=== PATIENT | male | born 1995 | race Caucasian/White ===

== ENCOUNTER 2023-10-28 19:01 | Emergency (ER) | payer MEDICARE, SELFPAY ==
[2023-10-28 19:02] VITALS: BP 160/98
--- NOTE | 2023-10-28 20:18 | ED.GENMED ---
History of Present Illness
General
Chief Complaint: Extremity Pain (non-traumatic)
Source: patient
Exam Limitations: none
Time Seen by Provider: 10/28/23 19:25
History of Present Illness
History of Present Illness:
This is a 28 year old male that comes in with c/o tingling in the left hand that goes into the left forearm. States that on Sunday after work he noticed this tingling in the left third and fourth knuckle. States that this then went into his hand and
up the left arm to the elbow. States that it was like he punched something. 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 States that he has had some of this in the right hand but not as bad. Denies any fever, chills, chest pain, SOB, abd pain,
nausea, vomiting, diarrhea, headache, dizziness, urinary burning.
Past History
Past History
ED Past Medical History: Asthma (Sports induced), Psychiatric (Anxiety, Depression and Stress) and Other (Chronic low back pain); Negative HTN, Hypercholesterolemia or NIDDM
ED Past Surgical History: Appendectomy
Social History
Tobacco: Former smoker
Alcohol: Occasional
Drug: None
Personal: Single
Living: with family
Employment: Employed
Review of Systems
Review of Systems
All Other Systems: ROS reviewed and negative except as documented in HPI and ROS
Constitutional: Reports no symptoms; Denies fever or chills
EENT: Reports no symptoms
Respiratory: Reports no symptoms; Denies cough or trouble breathing
Cardiac: Reports no symptoms; Denies chest pain
ABD/GI: Reports no symptoms; Denies abdominal pain, nausea, vomiting or diarrhea
: Reports no symptoms; Denies dysuria, frequency or urgency
Musculoskeletal: Reports other (Tingling left hand up to the left elbow)
Skin: Reports no symptoms
Neurological: Reports no symptoms; Denies dizzy or headache
Psychiatric: Reports no symptoms
Phy Exam
General Physical Exam
General Presentation: well appearing and no apparent distress
General age: appears stated age
General Skin: warm and dry
General Habitus: normal
General Mental: alert
General Hydration: appears well hydrated
ENT Exam
ENT Exam: TM's normal, pharynx normal and neck supple
Eye Exam
Eye Exam: EOMI
Cardiovascular Exam
Cardiovascular Exam: regular rate/rhythm, no edema, no murmur and normal peripheral pulses
Pulmonary Exam
Pulmonary Exam: lungs clear, no respiratory distress, no rales, chest non tender, no crackles, no rhonchi, no wheezing and no cough
Gastrointestinal Exam
Gastrointestinal Exam: normal bowel sounds, non tender, soft, no organomegaly, no pulsatile mass and non distended
Musculoskeletal Exam
Musculoskeletal Exam: full ROM, no edema and other (Negative for swelling of the left arm. Feels pressure with palpation. Peripheral pulse normal. )
Skin Exam
Skin Exam: normal color, warm/dry, no rash and no petechia
Psychiatric Exam
Psychiatric Exam: normal mood/affect
Course
Orders/Labs/Results
Orders:
Orders
10/28/23 20:18
CT Head W/o Iv Contrast Urgent
Comment:
Reason For Exam: Numbness tingling left arm
10/28/23 20:39
Complete Blood Count/With Diff Urgent
Comprehensive Metabolic Panel Urgent
Troponin I Urgent
Abnormal Lab Results
10/28/23
20:39
MCH 31.6 H pg
(27.0-31.0)
Absolute Monos (auto) 0.7 H 10^3/uL
(0.1-0.6)
Glucose 101 H mg/dl
(70-99)
10/28/23 20:39
10/28/23 20:39
Glucose nonfasting. Troponin <0.012
Vital Signs
Initial and Last Documented VS:
Initial Vital Signs
Temp Pulse Resp BP Pulse Ox
99.5 F 68 18 160/98 98
10/28/23 19:02 10/28/23 19:02 10/28/23 19:02 10/28/23 19:02 10/28/23 19:02
Last Documented Vital Signs
Temp Pulse Resp BP Pulse Ox
99.5 F 68 18 140/85 97
10/28/23 19:02 10/28/23 19:02 10/28/23 19:02 10/28/23 20:40 10/28/23 20:42
MDM/Problems Addressed
Differential Diagnosis Includes:
carpal tunnel,
MDM/Problems Addressed:
This is a 28 year old male that comes in with c/o left hand tingling that goes up to his elbow. States that it has also been in the right hand but not as bad. States that he has been taking Ibuprofen but this did not help much.
Will check labs and CT head.
Back into see patient. Explained that her blood work is normal along with the CT of the head. This is most likely carpal tunnel due to the repetitive movements and that it has been on both sides. Will have patient follow up with the Orthopedic
specialist. Patient to return with any concerns. .
Chronic conditions affecting care:
NA
Acute Exacerbation and/or Progression of Chronic Illness:
NA
*Radiology
Radiology exam reviewed: radiology read reviewed (CT head-No evidence of acute intracranial abnormality. )
*Pulse Oximetry
Patient hypoxic: no
*EKG
Interpreted by ED Provider?: NA
Rate: EKG- N/A
*Help Desk Operator Interpretation
Rate: Help Desk Operator- N/A
*Critical Care Note
Total Time (30-74mins, 75-104mins- exclusive of procedures): Not Applicable
ED Attending Note
-
Portions of this chart may have been created with voice recognition software.� Occasional wrong word or��sound alike� substitutions may have occurred due to the inherent limitations of voice recognition software.
Discharge Plan
Departure
Patient Disposition: Home (Routine Discharge)
Date of Disposition: 10/28/23
Time of Disposition: 21:37
Patient with high blood pressure during this ER visit?: Yes
Condition: Good
Covid-19: Not Applicable
Discharge Problem:
Arm paresthesia, left, Possible Carpal tunnel
Instructions: Paresthesia (DC), Carpal Tunnel Exercises, Carpal tunnel surgery - Discharge instructions, BLOOD PRESSURE
Prescriptions:
No Action
prednisone 20 MG tablet
20 mg PO BID Qty: 10 0RF
promethazine-codeine 5 ML syrup
5 - 10 ml PO Q4HPRN PRN (Reason: cough and congestion) Qty: 200 0RF
ondansetron [Zofran ODT] 8 MG tablet,disintegrating
8 mg PO TIDPRN PRN (Reason: vomiting) Qty: 15 0RF
oseltamivir [Tamiflu] 75 MG capsule
75 mg PO BID Qty: 10 0RF
albuterol sulfate 8.5 GM HFA aerosol inhaler
8.5 gm IH Q4 Qty: 1 0RF
naproxen 500 MG tablet
500 mg PO BID Qty: 20 0RF
Rx Instructions:
Take with food.
cyclobenzaprine 10 MG tablet
10 mg PO TID Qty: 15 0RF
prednisone 20 MG tablet
40 mg PO DAILY Qty: 6 0RF
ibuprofen 600 MG tablet
600 mg PO TIDPRN PRN (Reason: pain) Qty: 30 0RF
cyclobenzaprine 10 MG tablet
10 mg PO TIDPRN PRN (Reason: low back pain/spasm) Qty: 15 0RF
Referrals:
Vinnie Frank MD [Active] - Call in 1-3 days for appt
Rachid Pitt MD [Family Provider] -
Activity Restrictions/Additional Instructions:
As discussed, your blood work is normal along with the CT of the head. This is most likely Carpal tunnel due to the repetitive movement of your job. Please follow up with the facility specialist. Tylenol 1000mg every 6 hours for pain and
alternate with Ibuprofen 600mg every 6 hours with food. IF YOU HAVE ANY OTHER CONCERNS PLEASE RETURN TO THE EMERGENCY ROOM.
Interventions
Interventions:
*Risk Screen - Suicide Last Done: 10/28/23 19:02
*General Assessment Last Done: 10/28/23 20:43
*Neglect/Abuse Screening Last Done: 10/28/23 19:02
ED- Fall Risk Assessment Last Done: 10/28/23 20:44
*ED COVID-19 Vaccine History Last Done: 10/28/23 20:43
ED-Skin Assessment Last Done: 10/28/23 20:45
ED-Musculoskeletal Assessment Last Done: 10/28/23 20:45
Discharge Date and Time
Print Language: MARTINIQUAIS
[2023-10-28 20:40] VITALS: BP 140/85
[2023-10-28 20:42] VITALS: BMI 28.4
[2023-10-28 20:47] LABS: % Basophils 0.6 % (0-2); % Immature Granulocytes 0.1 % (0-0.5); % Monocytes 7.6 % (1.7-9.3); % Neutrophils 68.7 % (42.2-75.2); Absolute Basophils 0.1 10^3/uL (0-0.2); Absolute Eosinophils 0.2 10^3/uL (0-0.7); Absolute Lymphocytes 1.9 10^3/uL (1.2-3.4); Absolute Monocytes 0.7 10^3/uL (0.1-0.6); Absolute Neutrophils 6.2 10^3/uL (1.4-6.5); Hematocrit 47.5 % (39.0-52.0); Hemoglobin 16.3 g/dL (13.0-18.0); Mean Corp Hgb Conc. 34.3 g/dL (33.0-37.0); Mean Corpuscular Hgb 31.6 pg (27.0-31.0); Mean Corpuscular Volume 92.1 fL (80.0-94.0); Mean Platelet Volume 9.2 fL (7.4-10.4); Nucleated Red Blood Cells % 0 % (-); Platelet Count 246 10^3/uL (130-400); Red Blood Cell Count 5.16 10^6/uL (4.70-6.10); Red Cell Dist. Width 12.7 % (11.5-14.5)
[2023-10-28 21:05] LABS: ALT (SGPT) 29 U/L (0-50); AST (SGOT) 23 U/L (17-59); Albumin 4.5 g/dl (3.5-5.0); Alkaline Phosphatase 67 U/L (38-126); Blood Urea Nitrogen 15 mg/dl (9-20); Carbon Dioxide 28 mmol/L (22-30); Chloride 107 mmol/L (98-107); Estimated Creatinine Clearance 105 ml/min; Glucose 101 mg/dl (70-99); Potassium 4.1 mmol/L (3.5-5.1); Sodium 139 mmol/L (135-145); Total Bilirubin 0.3 mg/dl (0.2-1.3); Total Protein 6.9 g/dl (6.3-8.2); eGFR > 60.00
[2023-10-28 21:13] LABS: Troponin I < 0.012 ng/ml
[2023-10-28 22:04] VITALS: BP 139/86
== END 2023-10-28 22:06 | disposition home or self-care (01) ==
LOC: EMR 19:01
PROVIDERS: Clinical Nurse Specialist Family Health; EMERGENCY PHYSICIAN Emergency Medicine; FAMILY PHYSICIAN Internal Medicine
DX: R20.2 Paresthesia of skin (principal); R03.0 Elevated blood-pressure reading, without diagnosis of hypertension; Z87.891 Personal history of nicotine dependence
CPT/HCPCS: 99284; 70450; 80053; 84484; 85025

== ENCOUNTER 2025-03-13 22:39 | Emergency (ER) | payer SELFPAY ==
[2025-03-13 22:40] VITALS: BP 199/119
[2025-03-13 22:43] VITALS: BP 197/109
[2025-03-13 22:59] LABS: Hematocrit 49.1 % (39.0-52.0); Hemoglobin 16.7 g/dL (13.0-18.0); Mean Corp Hgb Conc. 34.0 g/dL (33.0-37.0); Mean Corpuscular Volume 89.4 fL (80.0-94.0); Nucleated Red Blood Cells % 0 % (-); Platelet Count 332 10^3/uL (130-400); Red Cell Dist. Width 13.4 % (11.5-14.5)
[2025-03-13 23:22] LABS: ALT (SGPT) 38 U/L (0-50); AST (SGOT) 22 U/L (17-59); Albumin 5.0 g/dl (3.5-5.0); Alkaline Phosphatase 98 U/L (38-126); Blood Urea Nitrogen 10 mg/dl (9-20); Calcium 10.0 mg/dl (8.4-10.2); Carbon Dioxide 24 mmol/L (22-30); Chloride 104 mmol/L (98-107); Glucose 107 mg/dl (70-99); Potassium 4.0 mmol/L (3.5-5.1); Sodium 139 mmol/L (135-145); Total Protein 8.3 g/dl (6.3-8.2); eGFR > 60.00
--- NOTE | 2025-03-13 23:30 | ED.GENMED ---
History of Present Illness
General
Chief Complaint: Throat Problem
Time Seen by Provider: 03/13/25 23:30
History of Present Illness
History of Present Illness:
FOCUSED PAST MEDICAL HISTORY
- Asthma, anxiety
REVIEW OF OLD RECORDS
- Was seen in the Emergency Department October 2023 with paresthesias and at that time CAT scan of the brain was unremarkable
Note:
CHIEF COMPLAINT(S)
Severe headache with neck tightness.
HISTORY OF PRESENT ILLNESS
The patient is a 30-year-old male who presented with the sudden onset of a pounding headache around 9:30 PM. The headache initially started in the back of the head and quickly spread to encompass the entire head. Alongside the headache, the patient
reported experiencing tightness in the neck extending downwards, and numbness in both hands. He mentioned that this headache was unlike any previous headaches he had, including those he experienced during his teenage years, which were diagnosed as
migraines. The severity of the headache increased over time and was associated with elevated blood pressure, noted to be initially in the 190s systolic upon presentation to the emergency department. Although the patient denies weakness on one side
of his body, he experienced sensory symptoms such as numbness in his hands. The headache was also accompanied by nausea, but the patient denied vomiting. The patient does not take any regular blood pressure medications and reported that his blood
pressure was significantly elevated upon arrival.
MEDICATIONS
The patient currently does not take any blood pressure medications.
REVIEW OF SYSTEMS
- Neurological: Sudden and severe headache with neck tightness and numbness in hands. No focal weakness observed.
- Cardiovascular: Elevated blood pressure noted.
- Gastrointestinal: Reports nausea without vomiting.
PHYSICAL EXAM
General: Alert, no acute distress.
Skin: Warm, dry.
Head: Normocephalic, atraumatic.
Neck: Supple, with excellent range of motion and no meningeal signs. No significant tenderness to palpation to the upper back or posterior neck, no anterior abnormality noted
Eye Ears, nose, mouth and throat: Oral mucosa moist.
Cardiovascular: Normal peripheral perfusion, No edema.
Respiratory: Respirations are non-labored.
Gastrointestinal : Abdomen nondistended.
Back: Normal range of motion, Normal alignment.
Musculoskeletal: Normal range of motion, normal strength.
Neurological: Alert and oriented to person, place, time, and situation, excellent [id number] testing, No focal neurological deficit observed. Normal sensation in all extremities. Excellent strength in all extremities
Psychiatric: Cooperative, appropriate mood & affect.
PLAN
1. Obtain a CT scan of the head to rule out intracranial bleeding.
2. Establish IV access and administer intravenous medication as needed.
3. Monitor blood pressure closely due to initial high readings and manage accordingly.
DIFFERENTIAL DIAGNOSIS
The Differential Diagnosis includes, in no particular order and is not limited to:
1. Intracranial hemorrhage
2. Migraine headache
3. Hypertensive crisis
4. Tension-type headache
5. Cervical spine disorder
6. Subarachnoid hemorrhage
7. Cluster headache
8. Meningitis
9. Sinusitis
10. Neurovascular event, such as a transient ischemic attack or stroke
RADIOLOGY
- CT head shows no acute abnormality
EKG
- Sinus 57, normal axis, PVCs
LABS
- White count 11.2, chemistries unremarkable
SUMMARY OF ENCOUNTER
The patient is a 30-year-old male who presented to the emergency department with a sudden and severe headache, neck tightness, and numbness in both hands. The headache started in the back of the head before spreading and was unlike previous
migraines experienced by the patient. Upon presentation, the patient had a markedly elevated blood pressure in the 190s systolic. Given the symptoms and high blood pressure, a CT scan of the head was ordered to rule out intracranial bleeding. The
patients physical exam did not reveal any meningeal signs, and his mental status was appropriate at the time of discharge.
DISPOSITION
Discharge with a plan for follow-up with the primary care physician.
ASSESSMENT
Potential hypertensive crisis and severe headache of unclear etiology, likely requiring blood pressure management and follow-up.
PLAN
Start the patient on losartan for blood pressure control and instruct the patient to follow up with their primary care physician for ongoing management.
MEDICATION RECONCILIATION
Start losartan upon discharge for blood pressure management.
MEDICAL DECISION MAKING
-Complexity of Data Reviewed: Chronic conditions affecting care include history of migraine headaches. Differential diagnosis considered: Intracranial hemorrhage, migraine headache, hypertensive crisis, tension-type headache, cervical spine
disorder, subarachnoid hemorrhage, cluster headache, meningitis, sinusitis, neurovascular event such as a transient ischemic attack or stroke.
-Data:
Category 1:
The patient underwent a CT scan of the head.
Category 2:
My independent interpretation of the CT scan of the head showed no acute intracranial bleeding.
-Risk:
Prescription medication was prescribed: Losartan for blood pressure management.
DIAGNOSIS
Headache
High blood pressure
UPDATE
- GCS of 15 with a stroke scale of 0
- However given the abrupt onset of symptoms CT imaging obtained
- CT imaging unremarkable
- Some ongoing pain despite Reglan, Benadryl, Toradol
- BP spontaneously improving but was close to systolic of 200 upon arrival I does not normally go to doctors
- I sent a prescription for losartan to his pharmacy and I instructed him to follow-up with the PMD
Past History
Past History
ED Past Medical History: Asthma (Sports induced), Psychiatric (Anxiety, Depression and Stress) and Other (Chronic low back pain); Negative HTN, Hypercholesterolemia or NIDDM
ED Past Surgical History: Appendectomy
Social History
Tobacco: Former smoker
Alcohol: Occasional
Drug: None
Personal: Single
Living: with family
Employment: Employed
Phy Exam
Physical Exam
Physical Exam:
See HPI
Course
Orders/Labs/Results
Orders:
Orders
03/13/25 22:43
EKG [Electrocardiogram (*1)] Urgent
Reason for Study: Tachycardia
EKG- Treatment ONCE
03/13/25 22:51
Complete Blood Count/With Diff Urgent
Comprehensive Metabolic Panel Urgent
03/13/25 23:44
Diphenhydramine [Benadryl] 25 mg IV NOW STA
Metoclopramide [Reglan] 10 mg IV NOW STA
03/14/25 00:00
CT Head W/o Iv Contrast Urgent
Reason For Exam: severe abrupt head pain
03/14/25 00:11
0.9% Sodium Chloride 1000 ml [Nss] 1,000 ml IV BOLUS
03/14/25 00:42
Ketorolac [Toradol] 15 mg IV NOW STA
03/14/25 01:32
Losartan [Cozaar] 50 mg PO NOW STA
Abnormal Lab Results
03/13/25
22:51
WBC 11.2 H 10^3/uL
(4.8-10.8)
Abs Immat Gran (auto) 0.1 H 10^3/uL
(0-0.05)
Absolute Neuts (auto) 7.2 H 10^3/uL
(1.4-6.5)
Absolute Monos (auto) 0.7 H 10^3/uL
(0.1-0.6)
Immature Gran % 0.6 H %
(0-0.5)
Glucose 107 H mg/dl
(70-99)
Total Protein 8.3 H g/dl
(6.3-8.2)
03/13/25 22:51
03/13/25 22:51
Vital Signs
Initial and Last Documented VS:
Initial Vital Signs
Temp Pulse Resp BP Pulse Ox
36.6 C 67 16 199/119 100
03/13/25 22:40 03/13/25 22:40 03/13/25 22:40 03/13/25 22:40 03/13/25 22:40
Last Documented Vital Signs
Temp Pulse Resp BP Pulse Ox
36.8 C 62 18 140/97 98
03/14/25 00:08 03/14/25 01:32 03/14/25 01:32 03/14/25 01:32 03/14/25 01:32
*Pulse Oximetry
SaO2: 100
Oxygen Mode of Delivery: Room air
Patient hypoxic: no
*Critical Care Note
Total Time (30-74mins, 75-104mins- exclusive of procedures): Not Applicable
ED Attending Note
-
Portions of this chart may have been created with voice recognition software.� Occasional wrong word or��sound alike� substitutions may have occurred due to the inherent limitations of voice recognition software.
Discharge Plan
Departure
Patient Disposition: Home (Routine Discharge)
Date of Disposition: 03/14/25
Time of Disposition: 01:35
Patient with high blood pressure during this ER visit?: Yes
Discharge Problem:
Headache
Instructions: Headache in adults - ED (DC), BLOOD PRESSURE
Prescriptions:
New
losartan 50 mg tablet
50 mg PO DAILY Qty: 30 0RF
No Action
prednisone 20 MG tablet
20 mg PO BID Qty: 10 0RF
promethazine-codeine 5 ML syrup
5 - 10 ml PO Q4HPRN PRN (Reason: cough and congestion) Qty: 200 0RF
ondansetron [Zofran ODT] 8 MG tablet,disintegrating
8 mg PO TIDPRN PRN (Reason: vomiting) Qty: 15 0RF
oseltamivir [Tamiflu] 75 MG capsule
75 mg PO BID Qty: 10 0RF
albuterol sulfate 8.5 GM HFA aerosol inhaler
8.5 gm IH Q4 Qty: 1 0RF
naproxen 500 MG tablet
500 mg PO BID Qty: 20 0RF
Rx Instructions:
Take with food.
cyclobenzaprine 10 MG tablet
10 mg PO TID Qty: 15 0RF
prednisone 20 MG tablet
40 mg PO DAILY Qty: 6 0RF
ibuprofen 600 MG tablet
600 mg PO TIDPRN PRN (Reason: pain) Qty: 30 0RF
cyclobenzaprine 10 MG tablet
10 mg PO TIDPRN PRN (Reason: low back pain/spasm) Qty: 15 0RF
Referrals:
NONE,* [Family Provider, Internal Medicine]
Activity Restrictions/Additional Instructions:
Basic blood work is unremarkable. CAT scan of the brain shows no bleeding or any other concern. EKG is also unremarkable. Your blood pressure was as high as 199/119. Without intervention the blood pressure did improve down to 140/97. However I
would be concerned for her blood pressure remains this high as an outpatient without seeing a primary care provider. Follow-up with the primary care and I would also recommend that you use your grandfather's blood pressure cuff to check your blood
pressure. Normal blood pressure should be under 120/80. I sent a prescription for losartan to your pharmacy.
Interventions
Interventions:
*Risk Screen - Suicide Last Done: 03/13/25 22:40
*General Assessment Last Done: 03/13/25 22:40
*Neglect/Abuse Screening Last Done: 03/13/25 22:40
*ED COVID-19 Vaccine History Last Done: 03/13/25 22:40
*ED Influenza Vaccine History Last Done: 03/13/25 22:40
[facility] Fall Risk Assessment Tool Last Done: 03/14/25 00:07
Discharge Date and Time
Print Language: ANDORRAN
[2025-03-14 00:07] VITALS: BMI 26.6
[2025-03-14 00:08] VITALS: BP 151/88
[2025-03-14] MEDS: NSS 1000 IV (00:18)
[2025-03-14] MEDS: BENADRYL 25 MG IV (00:20)
[2025-03-14] MEDS: REGLAN 10 MG IV (00:25)
[2025-03-14] MEDS: TORADOL 15 MG IV (00:59)
[2025-03-14 01:32] VITALS: BP 140/97
[2025-03-14] MEDS: COZAAR 50 MG PO (01:52)
== END 2025-03-14 02:03 | disposition home or self-care (01) ==
LOC: EMR 22:39
PROVIDERS: Emergency Medicine; EMERGENCY PHYSICIAN Emergency Medicine
DX: R51.9 Headache, unspecified (principal); R03.0 Elevated blood-pressure reading, without diagnosis of hypertension; J45.990 Exercise induced bronchospasm; F41.9 Anxiety disorder, unspecified; F32.A Depression, unspecified; M54.50 Low back pain, unspecified; G89.29 Other chronic pain; Z87.891 Personal history of nicotine dependence
CPT/HCPCS: 99284; 96374; 96375 ×2; 96361; 70450; 80053; 85025; 93005

== ENCOUNTER 2025-03-16 18:04 | Emergency (ER) | payer SELFPAY ==
[2025-03-16 18:08] VITALS: BP 183/119
[2025-03-16 18:26] LABS: Hematocrit 49.5 % (39.0-52.0); Hemoglobin 16.9 g/dL (13.0-18.0); Mean Corp Hgb Conc. 34.1 g/dL (33.0-37.0); Mean Corpuscular Volume 88.7 fL (80.0-94.0); Nucleated Red Blood Cells % 0 % (-); Platelet Count 309 10^3/uL (130-400); Red Cell Dist. Width 13.3 % (11.5-14.5)
[2025-03-16 18:41] LABS: ALT (SGPT) 30 U/L (0-50); AST (SGOT) 23 U/L (17-59); Albumin 5.1 g/dl (3.5-5.0); Alkaline Phosphatase 89 U/L (38-126); Blood Urea Nitrogen 12 mg/dl (9-20); Calcium 9.6 mg/dl (8.4-10.2); Carbon Dioxide 21 mmol/L (22-30); Chloride 103 mmol/L (98-107); Glucose 155 mg/dl (70-99); Potassium 4.3 mmol/L (3.5-5.1); Sodium 135 mmol/L (135-145); Total Protein 8.2 g/dl (6.3-8.2); eGFR > 60.00
[2025-03-16 18:48] LABS: Troponin I < 0.012 ng/ml
[2025-03-16 20:36] VITALS: BP 194/112
== END 2025-03-16 23:05 | disposition left against medical advice (07) ==
LOC: EMR 18:04
PROVIDERS: Physician Assistant Medical; EMERGENCY PHYSICIAN Emergency Medicine
DX: R51.9 Headache, unspecified (principal); Z53.21 Procedure and treatment not carried out due to patient leaving prior to being seen by health care provider
CPT/HCPCS: 80053; 84484; 85025; 93005

== ENCOUNTER 2025-03-17 00:20 | Emergency (ER) | payer SELFPAY ==
[2025-03-17] VITALS (10 sets, daily range): BP systolic 145–187; BP diastolic 96–113
--- NOTE | 2025-03-17 03:50 | ED.GENMED ---
History of Present Illness
General
Chief Complaint: Blood Pressure Problem
Source: patient
Time Seen by Provider: 03/17/25 03:26
History of Present Illness
History of Present Illness:
30-year-old male presents to the emergency room complaining of headache. Patient states that he was here for headache about 3 days ago. Patient had a CT scan which was unremarkable. He received medication and felt mostly better. Headache stayed
somewhat present for another day or so but yesterday felt like it gone away. This evening he was 'cuddling' with his significant other and got excited. The headache returned then. He denies any focal weakness numbness or tingling. Patient was
started on a blood pressure medication 3 days ago, losartan, for elevated blood pressure. He states he has been compliant with it. Patient does get headaches from time to time and was diagnosed with migraines as a teenager. He does not believe he
had a headache such as the one he said today. No associated nausea or vomiting. He does have photophobia and phonophobia associated with this headache.
Past History
Past History
ED Past Medical History: Asthma (Sports induced), Psychiatric (Anxiety, Depression and Stress) and Other (Chronic low back pain); Negative HTN, Hypercholesterolemia or NIDDM
ED Past Surgical History: Appendectomy
Social History
Tobacco: Former smoker
Alcohol: Occasional
Drug: None
Personal: Single
Living: with family
Employment: Employed
Phy Exam
Physical Exam
Physical Exam:
General: Awake, Alert, Oriented X3. No acute distress.
Vitals: unremarkable
Head: Atraumatic
Eyes: Pupils equal, EOMI
Throat: Airway intact, no exudates
Neck: Trachea midline
Lungs: Clear and equal b/l
Heart: Regular rate, no murmurs
Abd: Soft, Nontender, No pulsatile mass
Neuro: Cranial nerves intact, muscle strength equal bilaterally, cerebellar exam normal
Skin: Warm, dry, no rash
Extremities: pulses equal b/l, no edema
Course
Orders/Labs/Results
Orders:
Orders
03/17/25 03:07
CT Head W/o Iv Contrast Urgent
Comment: nauseated
Reason For Exam: headache, no hx, onset during sex, hypertensive,
03/17/25 03:48
Diphenhydramine [Benadryl] 25 mg IV NOW STA
Ketorolac [Toradol] 15 mg IV NOW STA
Prochlorperazine [Compazine] 10 mg IV NOW STA
03/17/25 06:57
Prednisone [Deltasone] 50 mg PO NOW STA
Vital Signs
Initial and Last Documented VS:
Initial Vital Signs
Temp Pulse Resp BP Pulse Ox
97.8 F 82 18 170/112 95
03/17/25 00:30 03/17/25 00:30 03/17/25 00:30 03/17/25 00:30 03/17/25 00:30
Last Documented Vital Signs
Temp Pulse Resp BP Pulse Ox
97.8 F 56 20 164/109 97
03/17/25 00:30 03/17/25 05:45 03/17/25 05:45 03/17/25 04:40 03/17/25 05:45
MDM/Problems Addressed
Differential Diagnosis Includes:
Subarachnoid hemorrhage, migraine headache, tension headache
MDM/Problems Addressed:
Patient presents with severe headache. He was seen here with similar symptoms a few days ago. He was started on losartan. Headache returned. It seems quite migrainous in nature. Patient feels better after migraine treatment here. Head CT here
is negative. Will discharge him with a steroid taper to help prevent rebound headache.
*Radiology
Radiology exam reviewed: radiology read reviewed
*Pulse Oximetry
SaO2: 100
Oxygen Mode of Delivery: Room air
Patient hypoxic: no
*Critical Care Note
Total Time (30-74mins, 75-104mins- exclusive of procedures): Not Applicable
ED Attending Note
-
Portions of this chart may have been created with voice recognition software.� Occasional wrong word or��sound alike� substitutions may have occurred due to the inherent limitations of voice recognition software.
Discharge Plan
Departure
Patient Disposition: Home (Routine Discharge)
Date of Disposition: 03/17/25
Time of Disposition: 06:57
Patient with high blood pressure during this ER visit?: Yes
Condition: Good
Discharge Problem:
Migraine headache
Instructions: Migraine in adults, BLOOD PRESSURE
Prescriptions:
New
methylprednisolone [Medrol (Kenneth)] 4 mg tablets,dose pack
See Rx Instructions .ROUTE .COMPLEX Qty: 21 0RF
Rx Instructions:
orally per package directions
Referrals:
[facility] [Outside]
[facility] [Outside]
NONE,* [Family Provider, Internal Medicine]
Interventions
Interventions:
*Neglect/Abuse Screening Last Done: 03/17/25 00:30
*ED COVID-19 Vaccine History Last Done: 03/17/25 03:15
*ED Influenza Vaccine History Last Done: 03/17/25 03:15
[facility] Fall Risk Assessment Tool Last Done: 03/17/25 03:15
*Risk Screen - Suicide (C-SSRS) Last Done: 03/17/25 03:15
ED- Cardiac Assessment Last Done: 03/17/25 03:16
ED- Neurological Assessment Last Done: 03/17/25 03:16
ED- Pulmonary Assessment Last Done: 03/17/25 03:16
Discharge Date and Time
Print Language: BELARUSIAN
[2025-03-17] MEDS: BENADRYL 25 MG IV (04:53)
[2025-03-17] MEDS: COMPAZINE 10 MG IV (04:54)
[2025-03-17] MEDS: TORADOL 15 MG IV (04:54)
[2025-03-17] MEDS: DELTASONE 50 MG PO (07:13)
== END 2025-03-17 07:15 | disposition home or self-care (01) ==
LOC: EMR 00:20
PROVIDERS: EMERGENCY PHYSICIAN Emergency Medicine
DX: G43.909 Migraine, unspecified, not intractable, without status migrainosus (principal); J45.909 Unspecified asthma, uncomplicated; G89.29 Other chronic pain; Z87.891 Personal history of nicotine dependence; Z90.49 Acquired absence of other specified parts of digestive tract
CPT/HCPCS: 96374; 96375; 99284; 70450